=== PATIENT | female | born 1985 | race Caucasian/White ===

== ENCOUNTER 2019-02-14 10:27 | Emergency (ER) | payer BC ==
[2019-02-14 10:40] VITALS: TEMP 98.3; BMI 34.0
[2019-02-14] MEDS ORDERED: SODIUM CHLORIDE 0.9% 1000 ML INFUS.BAG IV ONE (12:31)
--- NOTE | 2019-02-14 12:40 | PDOC ---
History of Present Illness - General Chief Complaint: Pain Stated Complaint: RT SIDE ABD PAIN History Source: Patient Exam Limitations: No Limitations - History of Present Illness Initial Comments: 02/14/19 12:38 A 1 by 34-year-old female no past medical history here today complaining of right lower quadrant pain. Patient states her symptoms started the night prior described as intermittent initially now like a cramping sensation of the pain was getting worse does have mild nausea but denies vomiting mild anorexia no fevers no chills no urinary complaints. Patient states she is not currently denies any vaginal discharge no moderating factors started suddenly while at rest on the evening prior has no history of renal colic or similar symptoms in the past no known history of ovarian cyst states Past History - Past Medical History Allergies/Adverse Reactions: Allergies Allergy/AdvReac Type Severity Reaction Status Date / Time No Known Allergies Allergy Verified 02/14/19 10:40 Home Medications: Ambulatory Orders NK [No Known Home Medication] 02/14/19 Asthma: No Cancer: No Cardiac Disorders: No COPD: No Diabetes: No HTN: No Seizures: No Thyroid Disease: No - Reproductive History Is Patient Now?: No - Psycho Social/Smoking Cessation Hx Smoking History: Never smoked Have you smoked in the past 12 months: No Information on smoking cessation initiated: No Hx Alcohol Use: No Drug/Substance Use Hx: No Substance Use Type: None Hx Substance Use Treatment: No Review of Systems - Review of Systems Constitutional: No: Chills, Diaphoresis HEENTM: No: Eye Pain, Blurred Vision Respiratory: No: Cough, Orthopnea Cardiac (ROS): Yes: Chest Pain : No: Burning, Dysuria, Discharge Musculoskeletal: No: Back Pain, Joint Pain All Other Systems: Reviewed and Negative *Physical Exam - Vital Signs Last Vital Signs Temp Pulse Resp BP Pulse Ox 98.3 F 90 18 111/70 100 02/14/19 10:38 02/14/19 10:38 02/14/19 10:38 02/14/19 10:38 02/14/19 10:38 - Physical Exam Comments: 02/14/19 12:39 Awake alert no acute distress lungs are clear bilaterally heart is regular without any murmurs rubs or gallops abdomen is soft there is right lower quadrant tenderness no rebound or guarding there is some referred pain on palpation of the left lower quadrant. No CVA tenderness skin is warm and dry patient is awake alert and oriented x3 ED Treatment Course - LABORATORY CBC & Chemistry Diagram: 02/14/19 12:40 02/14/19 12:34 - RADIOLOGY Radiology Studies Ordered: Category Date Time Status TRANSVAGINAL ULTRASOUND US [US] Stat Ultrasound 02/14/19 12:30 Ordered Medical Decision Making - Medical Decision Making 02/14/19 12:40 34-year-old female with right lower quadrant pain. Differential includes ovarian cyst rupture torsion. or related pain provocation such as ectopic PID TOA and appendicitis. Will perform transvaginal ultrasound to evaluate the right ovary if nondiagnostic patient will require CT abdomen pelvis to rule out appendicitis will be treated for her pain with morphine IV hydration UA to rule out UTI and UCG 02/14/19 16:02 pt with likley hemorrhagic cyst right adnexa. recommend repeat us in next cycle to evluate. pt ct a/p pending r/o other causes of pain such as appendicitis. Discharge - Discharge Information Problems reviewed: Yes Clinical Impression/Diagnosis: RLQ abdominal pain, Hemorrhagic cyst Condition: Improved - Admission No - Follow up/Referral - Patient Discharge Instructions Patient Printed Discharge Instructions: Ovarian Cyst Additional Instructions: you can take ibuprofen 600 mg every 8 hrs as needed for pain. follow up with your health services manager o evaluate your ovarian cyst. ultrasound shows today you have a cyst on your right ovary with likley hemorrhage. this will self resolve but can cause significant pain. you will need a repeat ultrasound in 4 - 6 weeks to reevaluate. return for any dizziness, severe or worsening pain, vomiting, fever or any concerns. - Post Discharge Activity
[2019-02-14 12:53] LABS: BASO % 0.5 % (0-2.0); EOS % 1.2 % (0-4.5); HEMATOCRIT 40.1 % (32.4-45.2); HEMOGLOBIN 13.6 GM/dL (10.7-15.3); LYMPH % 13.8 % (8-40); MCH 30.3 pg (25.7-33.7); MEAN CELL VOLUME 89.2 fl (80-96); MEAN PLT VOLUME 8.7 fl (7.5-11.1); MONO % 6.3 % (3.8-10.2); NEUT % 78.2 % (42.8-82.8); PLATELET COUNT 219 K/MM3 (134-434); RBC 4.49 M/mm3 (3.60-5.2); RDW 12.9 % (11.6-15.6); WHITE BLOOD COUNT 9.4 K/mm3 (4.0-10.0)
[2019-02-14 12:54] LABS: EPI CELLS 9.2 /HPF (0-5/HPF); HYALINE CASTS 1 /lpf (0-8); PH,URINE 6.5 (5.0-8.0); URINE APPEARANCE CLEAR; URINE BACTERIA 167.4 /hpf (NEGATIVE); URINE BILIRUBIN NEGATIVE (NEGATIVE); URINE COLOR YELLOW; URINE GLUCOSE (UA) NEGATIVE (NEGATIVE); URINE KETONE NEGATIVE (NEGATIVE); URINE LEUK ESTERASE 1+ (NEGATIVE); URINE NITRITE NEGATIVE (NEGATIVE); URINE PROTEIN NEGATIVE (NEGATIVE); URINE RBC 1 /hpf (0-4); URINE UROBILINOGEN 0.2 mg/dL (0.2-1.0); URINE WBC 7 /hpf (0-5)
[2019-02-14 13:37] LABS: ALBUMIN 3.7 g/dl (3.4-5.0); BILIRUBIN,TOTAL 0.6 mg/dL (0.2-1); BLOOD UREA NITROGEN 9.7 mg/dL (7-18); CALCIUM 8.7 mg/dL (8.5-10.1); CREATININE 0.6 mg/dL (0.55-1.3); POTASSIUM 4.7 mmol/L (3.5-5.1); TOT PROT 7.5 g/dl (6.4-8.2)
[2019-02-14] MEDS ORDERED: KETOROLAC TROMETHAMINE 30 MG/1 ML VIAL IVPUSH ONE (17:03)
[2019-02-14] MEDS ORDERED: KETOROLAC TROMETHAMINE 30 MG/1 ML VIAL ONE (17:04)
[2019-02-14 17:17] VITALS: BP 118/72; PULSE 63
== END 2019-02-14 17:00 | disposition home or self-care (01) ==
LOC: JER 10:27
PROC: 3E0333Z Introduction of Anti-inflammatory into Peripheral Vein, Percutaneous Approach (ICD-10-PCS; principal; 2019-02-14)
PROC: 3E0337Z Introduction of Electrolytic and Water Balance Substance into Peripheral Vein, Percutaneous Approach (ICD-10-PCS; 2019-02-14)
DX: R10.31 Right lower quadrant pain (principal); N83.291 Other ovarian cyst, right side
CPT/HCPCS: 36415; 74177-TC; 76830-TC; 80053; 81003; 84703; 85025; 99283-25; J7030